=== PATIENT | male | born 1955 | race Caucasian/White ===

== ENCOUNTER 2020-09-08 14:06 | Emergency (ER) | payer BC ==
[~2020-09-08] VITALS: Ht 188 cm; Wt 127.0 kg
[2020-09-08 14:06] VITALS: BP_SYST 110
[2020-09-08] MEDS ORDERED: NAPR-690 PO (15:22)
== END 2020-09-08 15:39 | disposition home or self-care (01) ==
LOC: SED 14:06
DX: R07.89 Other chest pain (principal); V29.49XA Motorcycle driver injured in collision with other motor vehicles in traffic accident, initial encounter; Y93.89 Activity, other specified; Y92.413 State road as the place of occurrence of the external cause; Y99.8 Other external cause status
CPT/HCPCS: 71100; 99283